=== PATIENT | female | born 2000 | race Caucasian/White ===

== ENCOUNTER 2019-11-08 17:12 | Emergency (ER) | payer SELFPAY ==
--- NOTE | 2019-11-08 18:36 | EDM.PDOC ---
ED HPI GENERAL MEDICAL PROBLEM - General Chief Complaint: General Stated Complaint: SORE THROAT Time Seen by Provider: 11/08/19 18:00 Source of Information: Reports: Patient - History of Present Illness INITIAL COMMENTS - FREE TEXT/NARRATIVE: Olesya is an alert 18 year old female whom presents to [facility] ER for evaluation of anterior neck pain. Olesya had a virtual visit with her PCP in [place] a few weeks ago and was prescribed antibiotic which did not improve her symptoms. Olesya was working in the [place] area and was supposed to follow-up to get blood tests and ultrasound but did not stay long in the area to completed work-up. Olesya working at the local [employer] this last week and noticed increased pain anterior neck. Olesya had noticed hair loss, slight weight changes but denies cold or warm intolerance. Olesya has no blood tests or records from previous visit. - Related Data Allergies Allergy/AdvReac Type Severity Reaction Status Date / Time No Known Allergies Allergy Verified 11/08/19 17:35 Home Meds: Home Meds Naproxen [Naprosyn] 500 mg PO Q8HR PRN #30 tablet 11/08/19 [Rx] Past Medical History [employer] History: Reports: Social & Family History - Tobacco Use Smoking Status *Q: Never Smoker - Recreational Drug Use Recreational Drug Use: No ED ROS GENERAL - Review of Systems Review Of Systems: Comprehensive ROS is negative, except as noted in HPI. ED EXAM, GENERAL - Physical Exam Exam: See Below Exam Limited By: No Limitations General Appearance: Alert, WD/WN, Mild Distress Eye Exam: Bilateral Eye: EOMI, Normal Inspection Ears: Normal External Exam, Normal Canal, Hearing Grossly Normal, Normal TMs Nose: Normal Inspection, Normal Mucosa Throat/Mouth: Normal Inspection, Normal Lips, Normal Gums Head: Normocephalic Neck: Supple, Other (Anterior tenderness (obvious) outline of thyroid noted. Pain to palpation noted. ) Respiratory/Chest: No Respiratory Distress, Lungs Clear, Normal Breath Sounds Cardiovascular: Normal Peripheral Pulses, Regular Rate, Rhythm GI/Abdominal: Normal Bowel Sounds, Soft Extremities: Normal Inspection, Normal Range of Motion Neurological: Alert, Oriented, CN II-XII Intact, Normal Cognition, Normal Gait, No Motor/Sensory Deficits Psychiatric: Normal Affect, Normal Mood Skin Exam: Warm, Dry, Intact Course - Vital Signs Last Recorded V/S: Last Vital Signs Temp 35.9 C L 11/08/19 17:44 Pulse 91 11/08/19 17:44 Resp 16 11/08/19 17:44 BP 120/54 L 11/08/19 17:44 Pulse Ox 98 11/08/19 17:44 - Orders/Labs/Meds Orders: Active Orders 24 hr Category Date Time Status Head Neck Soft Tissue Bi [US] Stat Exams 11/08/19 17:50 Taken THYROGLOBULIN ANTIBODY Urgent Lab 11/08/19 17:59 Received THYROXINE (T4) FREE, DIRECT, S Urgent Lab 11/08/19 17:59 Received Labs: Laboratory Tests 11/08/19 11/08/19 11/08/19 Range/Units 17:59 17:59 17:59 WBC 12.7 H (4.5-11.0) K/uL RBC 4.48 (3.30-5.50) M/uL Hgb 12.7 (12.0-15.0) g/dL Hct 38.9 (36.0-48.0) % MCV 87 (80-98) fL MCH 28 (27-31) pg MCHC 33 (32-36) % Plt Count 295 (150-400) K/uL Neut % (Auto) 75 H (36-66) % Lymph % (Auto) 18 L (24-44) % [place] % (Auto) 7 H (2-6) % Eos % (Auto) 1 L (2-4) % Baso % (Auto) 0 (0-1) % Sodium 141 (140-148) mmol/L Potassium 3.4 L (3.6-5.2) mmol/L Chloride 105 (100-108) mmol/L Carbon Dioxide 26 (21-32) mmol/L Anion Gap 13.4 (5.0-14.0) mmol/L BUN 13 (7-18) mg/dL Creatinine 0.7 (0.6-1.0) mg/dL Est Cr Clr Drug Dosing 106.05 mL/min Estimated GFR (MDRD) > 60 (>60) Glucose 98 (74-106) mg/dL Calcium 8.9 (8.5-10.1) mg/dL Magnesium 2.0 (1.8-2.4) mg/dL Total Bilirubin 0.2 (0.2-1.0) mg/dL AST 17 (15-37) U/L ALT 30 (12-78) U/L Alkaline Phosphatase 93 (46-116) U/L Total Protein 7.3 (6.4-8.2) g/dL Albumin 3.9 (3.4-5.0) g/dL Globulin 3.4 (2.3-3.5) g/dL Albumin/Globulin Ratio 1.1 L (1.2-2.2) TSH, Ultra Sensitive 0.465 (0.358-3.740) uIU/mL - Re-Assessments/Exams Free Text/Narrative Re-Assessment/Exam: Reassessment: Updated Olesya regarding blood test results with elevated WBC and lower TSH testing. Right Lobe: L:4.7 x H: 1.0 x W: 2.0 cm Left Lobe: L: 4.7 H:1.2 and W: 1.8. Reactive Left lymph node (1.3 x 0.5 x1.0 cm) with color flow. Right Solid hypoechoic nodule with calcifications in upper lobe TR5 vs TR4 w/color flow. Wet Read per [employer]. Radiology report pending, Patient will be sent report to take to PCP for follow-up. Next step in work-up should be completed in [place] with lymph node and Nodule biopsy. Recommend: Naproxen 500mg every am and pm x 2 week to help with inflammation and pain. 11/08/19 19:08 Departure - Departure Time of Disposition: 19:23 Disposition: Home, Self-Care 01 Clinical Impression: Reactive cervical lymphadenopathy, Thyroid nodule - Discharge Information Prescriptions: Naproxen [Naprosyn] 500 mg PO Q8HR PRN #30 tablet PRN Reason: Inflammation Instructions: Lymphadenopathy, Thyroid Nodule, Thyroid Needle Biopsy Referrals: PCP,None [Primary Care Provider] - Forms: ED Department Discharge Additional Instructions: 1. Naproxen 500mg every am and pm x 2 week to help with inflammation and swelling. 2. Blood work normal except for WBC elevated and TSH low normal. 3. Ultrasound Initial reading: Right Lobe: L:4.7 x H: 1.0 x W: 2.0 cm Left Lobe: L: 4.7 H:1.2 and W: 1.8. Reactive Left lymph node (1.3 x 0.5 x1.0 cm) with color flow. Right Solid hypoechoic nodule with calcifications in upper lobe TR5 vs TR4 w/color flow. Wet Read per [employer] Manager. Radiology report pending. Formal report will be sent to home address take to PCP for follow-up. Next step in work-up should be completed in [place] with lymph node and.or nodule biopsy. Recommend: Naproxen 500mg every am and pm x 2 week to help with inflammation and pain Sepsis Event Note (ED) - Focused Exam Vital Signs: Vital Signs Temp Pulse Resp BP Pulse Ox 11/08/19 17:44 35.9 C L 91 16 120/54 L 98 - My Orders Last 24 Hours: My Active Orders 11/08/19 17:50 Head Neck Soft Tissue Bi [US] Stat 11/08/19 17:59 THYROGLOBULIN ANTIBODY Urgent THYROXINE (T4) FREE, DIRECT, S Urgent - Assessment/Plan Last 24 Hours: My Active Orders 11/08/19 17:50 Head Neck Soft Tissue Bi [US] Stat 11/08/19 17:59 THYROGLOBULIN ANTIBODY Urgent THYROXINE (T4) FREE, DIRECT, S Urgent
--- NOTE | 2019-11-08 19:16 | CRLUS ---
INDICATION: thyroid pain and inflammation COMPARISON: none TECHNIQUE: Anderson scale and color Doppler images were acquired of the thyroid gland. FINDINGS: The thyroid gland demonstrates normal uniform echogenicity and has a smooth outer contour. The right lobe measures 4.7 x 1.0 x 2.0 centimeters and the left lobe measures 4.7 x 1.2 x 1.8 centimeters in size. Solid hypoechoic circumscribed nodule upper pole left thyroid lobe with associated calcifications measuring 1.2 x 0.7 x 0.7 centimeters. Right cervical lymph node measuring 1.3 x 0.5 x 1.0 centimeters. The color Doppler images demonstrate normal vascularity. There is no evidence of cervical lymphadenopathy or parathyroid mass. IMPRESSION: TR-4 nodule upper pole left thyroid lobe measuring 1.2 centimeters. Follow-up in 1 year recommended. Mildly prominent right cervical lymph node measuring 1.3 x 0.5 x 1.0 centimeters, likely reactive. Dictated by Brandon Hodge MD @ Nov 08 2019 7:11PM Signed by Dr. Brandon Hodge @ Nov 08 2019 7:14PM
== END 2019-11-08 19:33 | disposition home or self-care (01) ==
LOC: JP.ED 17:12
DX: E04.1 Nontoxic single thyroid nodule (principal); R59.0 Localized enlarged lymph nodes
CPT/HCPCS: 36415; 76536; 80053; 83735; 84439; 84443; 85025; 86800; 99284-25

== ENCOUNTER 2023-05-14 08:47 | Emergency (ER) | payer BC, MEDICAID | END 2023-05-14 11:35 | disposition left against medical advice (07) | LOC: JP.ED 08:47 | DX: Z53.21 Procedure and treatment not carried out due to patient leaving prior to being seen by health care provider (principal) ==

== ENCOUNTER 2023-08-23 13:58 | Emergency (ER) | payer BC ==
[2023-08-23] MEDS ORDERED: cefTRIAXone 1 GM Vial IM ONE (14:58)
[2023-08-23] MEDS ORDERED: Lidocaine 1% 5 ML VIAL INJECT ONE (15:08)
[2023-08-23] MEDS: Acetaminophen/oxyCODONE 325-5 MG Tab PO ONE (15:12)
[2023-08-23] MEDS: cefTRIAXone 1 GM, Lidocaine 1% 2.1 ML IM ONE (15:12)
== END 2023-08-23 15:39 | disposition home or self-care (01) ==
LOC: JP.ED 13:58
DX: S40.822A Blister (nonthermal) of left upper arm, initial encounter (principal); L08.9 Local infection of the skin and subcutaneous tissue, unspecified; Z79.899 Other long term (current) drug therapy; X58.XXXA Exposure to other specified factors, initial encounter
CPT/HCPCS: 96372; 99283; A9270; J0696

== ENCOUNTER 2023-09-22 19:39 | Emergency (ER) | payer BC | END 2023-09-22 19:54 | disposition left against medical advice (07) | LOC: JP.ED 19:39 | DX: Z53.21 Procedure and treatment not carried out due to patient leaving prior to being seen by health care provider (principal) ==

== ENCOUNTER 2024-11-22 16:20 | Emergency (ER) | payer SELFPAY | END 2024-11-22 17:53 | disposition home or self-care (01) | LOC: JP.ED 16:20 | DX: S93.401A Sprain of unspecified ligament of right ankle, initial encounter (principal); X50.0XXA Overexertion from strenuous movement or load, initial encounter; Y93.01 Activity, walking, marching and hiking | CPT/HCPCS: 73610-26-RT; 73610-RT; 99283 ==